=== PATIENT | male | born 2000 | race Caucasian/White ===

== ENCOUNTER 2021-01-20 07:14 | Emergency (ER) | payer BC ==
[2021-01-20 07:33] VITALS: BP 134/85; PULSE 84; TEMP 98.6; BMI 22.3
[2021-01-20] MEDS ORDERED: KETOROLAC TROMETHAMINE 15 MG/ML VIAL IM ONE (07:36)
[2021-01-20] MEDS ORDERED: KETOROLAC TROMETHAMINE 15 MG/ML VIAL ONE (07:40)
== END 2021-01-20 08:53 | disposition home or self-care (01) ==
LOC: FER 07:14
PROC: 2W3CX1Z Immobilization of Right Lower Arm using Splint (ICD-10-PCS; principal; 2021-01-20)
PROC: 3E0233Z Introduction of Anti-inflammatory into Muscle, Percutaneous Approach (ICD-10-PCS; 2021-01-20)
DX: S60.511A Abrasion of right hand, initial encounter (principal); S62.91XA Unspecified fracture of right hand, initial encounter for closed fracture
CPT/HCPCS: 73110-TC-RT-FY; 73130-TC-RT-FY; 99284-25